=== PATIENT | male | born 1980 | race Caucasian/White ===

== ENCOUNTER 2018-01-10 18:59 | Emergency (ER) | payer BC, OTHER ==
[2018-01-10] MEDS ORDERED: NORMAL SALINE 1000 ML 500 ML IV ONE (20:03)
[2018-01-10] MEDS ORDERED: FENTANYL CITRATE INJ/PF 100 MCG/2 ML AMPUL IV ONE (20:04)
[2018-01-10] MEDS ORDERED: ONDANSETRON HCL INJ/PF 4 MG/2 ML SDV IV ONE (20:04)
--- NOTE | 2018-01-10 20:05 | ER Document Report ---
ED Medical Screen (RME) - General Chief Complaint: Flank Pain Stated Complaint: FLANK PAIN Time Seen by Provider: 01/10/18 20:00 Notes: RME DISCLOSURE I have seen this patient as part of a Rapid Medical Evaluation and, if applicable, placed any initially appropriate orders. The patient will be seen and fully evaluated, including a full history and physical exam, by a provider ( in Main ED or Fast Track) when a room becomes available. 38-year-old male here with complaints of right low back pain that started a few days ago. Pain is worse with movement and improved with minimizing movement however he still has some pain even at rest. This morning, he started to get nauseous and this made him worry that the pain may be more than just musculoskeletal. He does not have any hematuria dysuria frequency abdominal pain fevers chills diarrhea. He has no prior history of kidney stone. EXAM I am unable to reproduce the pain upon palpation of the lower lumbar paraspinal musculature No abdominal tenderness TRAVEL OUTSIDE OF THE [place] IN LAST 30 DAYS: No - Related Data Allergies/Adverse Reactions: No Known Allergies Allergy (Unverified 01/10/18 19:01) Past Medical History - Social History Chew tobacco use (# tins/day): No Frequency of alcohol use: Occasional Drug Abuse: None Renal/ Medical History: Denies: Hx Peritoneal Dialysis GI Medical History: Reports: Hx Gastroesophageal Reflux Disease Past Surgical History: Reports: Hx Tonsillectomy Physical Exam - Vital signs Vitals: Temp Pulse Resp BP Pulse Ox 98.5 F 73 20 140/78 H 96 01/10/18 19:40 01/10/18 19:40 01/10/18 19:40 01/10/18 19:40 01/10/18 19:40 Course - Vital Signs Vital signs: Temp Pulse Resp BP Pulse Ox 98.5 F 73 20 140/78 H 96 01/10/18 19:40 01/10/18 19:40 01/10/18 19:40 01/10/18 19:40 01/10/18 19:40
[2018-01-10 20:40] LABS: ABSOLUTE EOSINOPHILS # (AUTO) 0.3 10^3/uL (0.0-0.6); ABSOLUTE LYMPHOCYTES (AUTO) 3.2 10^3/uL (0.5-4.7); ABSOLUTE MONOCYTES (AUTO) 0.6 10^3/uL (0.1-1.4); ABSOLUTE NEUT (AUTO) 4.8 10^3/uL (1.7-8.2); BASOPHILS % (AUTO) 0.5 % (0-2); EOSINOPHILS % (AUTO) 3.8 % (0-6); HEMATOCRIT 41.5 % (37.9-51.0); HEMOGLOBIN 13.9 g/dL (13.5-17.0); LYMPHOCYTES % (AUTO) 35.6 % (13-45); MEAN CORPUSCULAR HGB CONC 33.4 g/dL (32.0-36.0); MEAN CORPUSCULAR VOLUME 87 fl (80-97); MONOCYTES % (AUTO) 7.2 % (3-13); PLATELET COUNT 317 10^3/uL (150-450); RED BLOOD COUNT 4.79 10^6/uL (4.35-5.55); RED CELL DISTRIBUTION WIDTH 14.1 % (11.5-14.0); SEGMENTED NEUTROPHILS % (AUTO) 52.9 % (42-78); TOTAL CELLS COUNTED % (AUTO) 100 %; WHITE BLOOD COUNT 9.1 10^3/uL (4.0-10.5)
[2018-01-10 21:00] LABS: ANION GAP 14 (5-19); BLOOD UREA NITROGEN 11 mg/dL (7-20); CALCIUM 10.1 mg/dL (8.4-10.2); CARBON DIOXIDE 28 mmol/L (22-30); CHLORIDE 101 mmol/L (98-107); GLUCOSE 106 mg/dL (75-110); POTASSIUM 4.1 mmol/L (3.6-5.0); SODIUM 143.2 mmol/L (137-145)
--- NOTE | 2018-01-10 21:11 | RADIOLOGY REPORT (SQ) ---
EXAM DESCRIPTION: CT LTD RENAL STONE PROTOCOL ON COMPLETED DATE/TIME: 01/10/2018 8:47 pm REASON FOR STUDY: R flank pain; eval stone COMPARISON: None. TECHNIQUE: CT scan of the abdomen and pelvis performed without intravenous or oral contrast. Images reviewed with lung, soft tissue, and bone windows. Reconstructed coronal and sagittal MPR images revi ewed. All images stored on PACS. All CT scanners at this facility use dose modulation, iterative reconstruction, and/or weight based d osing when appropriate to reduce radiation dose to as low as reasonably achievable (ALARA). [facility]: Dose Right [facility]: CareDose [facility]: Dose Right [facility]: Teradose 4D [facility]: Smart [employer] RADIATION DOSE: CT Rad equipment meets quality standard of care and radiation dose reduction techniq ues were employed. CTDIvol: 13.9 mGy. DLP: 749 mGy-cm.mGy. LIMITATIONS: None. FINDINGS: LOWER CHEST: No significant findings. No nodules or infiltrates. NON-CONTRASTED LIVER, SPLEEN, ADRENALS: Evaluation limited by lack of IV contrast. No identified sign ificant masses. PANCREAS: No masses. No peripancreatic inflammatory changes. GALLBLADDER: No identified stones by CT criteria. No inflammatory changes to suggest cholecystitis. RIGHT KIDNEY AND URETER: No suspicious masses. Assessment limited by lack of IV contrast. No signif icant calcifications. No hydronephrosis or hydroureter. LEFT KIDNEY AND URETER: No suspicious masses. Assessment limited by lack of IV contrast. No signifi cant calcifications. No hydronephrosis or hydroureter. AORTA AND RETROPERITONEUM: No aneurysm. No retroperitoneal masses or adenopathy. BOWEL AND PERITONEAL CAVITY: No obvious masses or inflammatory changes. No free fluid. APPENDIX: Not identified. No pericecal inflammatory changes are seen. PELVIS, BLADDER, AND ABDOMINAL WALL:No abnormal masses. No free fluid. Bladder normal. BONES: No significant findings. OTHER: No other significant finding. IMPRESSION: NO SIGNIFICANT OR ACUTE PROCESS IN THE ABDOMEN OR PELVIS. COMMENT: Quality ID # [id number]: Final reports with documentation of one or more dose reduction techniques (e.g., Automated exposure control, adjustment of the mA and/or kV according to patient size, use of iterative reconstruction technique) TECHNICAL DOCUMENTATION: JOB ID: [id number] [employer]- All Rights Reserved Reading location - IP/workstation name: [email or web address]
--- NOTE | 2018-01-10 21:12 | ER Document Report ---
ED General - General Chief Complaint: Flank Pain Stated Complaint: FLANK PAIN Time Seen by Provider: 01/10/18 20:00 Mode of Arrival: Ambulatory Information source: Patient Notes: 38-year-old male presents with complaints of right flank pain. Patient denies any fevers or chills nausea vomiting or diarrhea. Patient does note that the pain has worsened with movement. He denies any history of kidney stones and kidney infections patient denies any urinary complaints TRAVEL OUTSIDE OF THE [place] IN LAST 30 DAYS: No - HPI Onset: Last week Onset/Duration: Sudden, Persistent Quality of pain: Achy Severity: Mild Pain Level: 1 Associated symptoms: Body/muscle aches Exacerbated by: Movement Relieved by: Denies Similar symptoms previously: No Recently seen / treated by doctor: No - Related Data Allergies/Adverse Reactions: No Known Allergies Allergy (Unverified 01/10/18 19:01) Past Medical History - Social History Smoking Status: Never Smoker Cigarette use (# per day): No Chew tobacco use (# tins/day): No Smoking Education Provided: No Frequency of alcohol use: Occasional Drug Abuse: None Family History: Reviewed & Not Pertinent Patient has suicidal ideation: No Patient has homicidal ideation: No Renal/ Medical History: Denies: Hx Peritoneal Dialysis GI Medical History: Reports: Hx Gastroesophageal Reflux Disease Past Surgical History: Reports: Hx Tonsillectomy Review of Systems - Review of Systems Notes: REVIEW OF SYSTEMS: CONSTITUTIONAL : Denies fever, chills, or sweats. Denies recent illness. EENT: Denies eye, ear, throat, or mouth pain or symptoms. Denies nasal or sinus congestion or discharge. Denies throat, tongue, or mouth swelling or difficulty swallowing. CARDIOVASCULAR: Denies chest pain. Denies palpitations or racing or irregular heart beat. Denies ankle edema. RESPIRATORY: Denies cough, cold, or chest congestion. Denies shortness of breath, difficulty breathing, or wheezing. GASTROINTESTINAL: Admits to right flank pain GENITOURINARY: Denies difficulty urinating, painful urination, burning, frequency, blood in urine, or discharge. MUSCULOSKELETAL: Denies back or neck pain or stiffness. Denies joint pain or swelling. SKIN: Denies rash, lesions or sores. HEMATOLOGIC : Denies easy bruising or bleeding. LYMPHATIC: Denies swollen, enlarged glands. NEUROLOGICAL: Denies confusion or altered mental status. Denies passing out or loss of consciousness. Denies dizziness or lightheadedness. Denies headache. Denies weakness or paralysis or loss of use of either side. Denies problems with gait or speech. Denies sensory loss, numbness, or tingling. Denies seizures. PSYCHIATRIC: Denies anxiety or stress. Denies depression, suicidal ideation, or homicidal ideation. ALL OTHER SYSTEMS REVIEWED AND NEGATIVE. Dictation was performed using [employer] voice recognition software PHYSICAL EXAMINATION: GENERAL: Well-appearing, well-nourished and in no acute distress. HEAD: Atraumatic, normocephalic. EYES: Pupils equal round and reactive to light, extraocular movements intact, sclera anicteric, conjunctiva are normal. ENT: Nares patent, oropharynx clear without exudates. Moist mucous membranes. NECK: Normal range of motion, supple without lymphadenopathy LUNGS: Breath sounds clear to auscultation bilaterally and equal. No wheezes rales or rhonchi. HEART: Regular rate and rhythm without murmurs ABDOMEN: Soft, nontender, nondistended abdomen. No guarding, no rebound. No masses appreciated right CVA tenderness. Musculoskeletal: Normal range of motion, no pitting or edema. No cyanosis. NEUROLOGICAL: Cranial nerves grossly intact. Normal speech, normal gait. Normal sensory, motor exams PSYCH: Normal mood, normal affect. SKIN: Warm, Dry, normal turgor, no rashes or lesions noted. Physical Exam - Vital signs Vitals: Temp Pulse Resp BP Pulse Ox 98.5 F 73 20 140/78 H 96 01/10/18 19:40 01/10/18 19:40 01/10/18 19:40 01/10/18 19:40 01/10/18 19:40 Course - Re-evaluation Re-evalutation: 01/10/18 21:12 Lab work including CBC CMP were performed no acute abnormality was noted to urinalysis pending CT is pending at this time 01/10/18 21:12 CT noted no significant abnormality, urinalysis still pending 01/10/18 23:50 Urinalysis also noted no acute abnormality, patient's presentation is quite benign, he is resting comfortably, he will be treated with anti-inflammatories for flank pain as there is no obvious intra-abdominal source of this patient's pain. He has been given very strict return precautions After performing a Medical Screening Examination, I estimate there is LOW risk for ACUTE APPENDICITIS, BOWEL OBSTRUCTION, ACUTE CHOLECYSTITIS, PERFORATED DIVERTICULITIS, INCARCERATED HERNIA, PANCREATITIS, TESTICULAR TORSION or PERFORATED ULCER, thus I consider the discharge disposition reasonable. Also, there is no evidence or peritonitis, sepsis, or toxicity. I have reevaluated this patient multiple times and no significant life threatening changes are noted. The patient and I have discussed the diagnosis and risks, and we agree with discharging home with close follow-up with the understanding that symptoms and presentations can change. We also discussed returning to the Emergency Department immediately if new or worsening symptoms occur. We have discussed the symptoms which are most concerning (e.g., bloody stool, fever, changing or worsening pain, intractable vomiting - standard verbal up date) that necessitate immediate return. - Vital Signs Vital signs: Temp Pulse Resp BP Pulse Ox 98.5 F 72 18 129/76 H 97 01/10/18 21:50 01/10/18 21:50 01/10/18 21:50 01/10/18 21:50 01/10/18 21:50 - Laboratory Result Diagrams: 01/10/18 20:25 01/10/18 20:25 Laboratory results interpreted by me: 01/10/18 20:25 RDW 14.1 H - Diagnostic Test Radiology reviewed: Image reviewed, Reports reviewed - no acute abnormality Discharge - Discharge Clinical Impression: Flank pain, Muscle strain Condition: Stable Disposition: HOME, SELF-CARE Instructions: Abdominal Pain ([facility]), Flank Pain ([facility]) Additional Instructions: Follow up with your physician tomorrow for further care or return to the ED IMMEDIATELY if symptoms worsen or new concerns occur. If you cannot afford to follow up with your primary care physician a list of low cost clinics have been provided at the end of your discharge papers as well. Prescriptions: Naproxen 500 mg PO BID #20 tablet
[2018-01-10 21:19] LABS: APPEARANCE,URINE CLEAR; BILIRUBIN,URINE NEGATIVE (NEGATIVE); COLOR,URINE COLORLESS; GLUCOSE, URINE NEGATIVE (NEGATIVE); KETONES,URINE NEGATIVE (NEGATIVE); LEUKOCYTE ESTERASE,URINE NEGATIVE (NEGATIVE); NITRITE,URINE NEGATIVE (NEGATIVE); PROTEIN,URINE NEGATIVE (NEGATIVE); URINE SPECIFIC GRAVITY 1.001; UROBILINOGEN,URINE NEGATIVE mg/dL (<2.0)
[2018-01-10 21:51] VITALS: BP 129/76
== END 2018-01-10 21:51 | disposition home or self-care (01) ==
LOC: ER 18:59
DX: T14.8XXA Other injury of unspecified body region, initial encounter (principal); R10.9 Unspecified abdominal pain; X58.XXXA Exposure to other specified factors, initial encounter
CPT/HCPCS: 99284; 96361; 96374; 96375; 36415; 85025; 80048; 81001; 76380; J3010; J2405; J7030

== ENCOUNTER 2019-10-01 00:11 | Emergency (ER) | payer SELFPAY ==
--- NOTE | 2019-10-01 01:00 | RADIOLOGY REPORT (SQ) ---
EXAM DESCRIPTION: XR CHEST 2 VIEWS COMPLETED DATE/TME: 10/01/2019 00:00 CLINICAL HISTORY: 39 years, Male, chest pain COMPARISON: None. NUMBER OF VIEWS: 2 TECHNIQUE: 2 views of the chest LIMITATIONS: None. FINDINGS: The heart size is normal. Lungs are clear. No pneumothorax IMPRESSION: Negative chest copyright 2010 [employer]- All Rights Reserved
[2019-10-01] MEDS ORDERED: PREDNISONE 20 MG TABLET PO ONE (03:35)
[2019-10-01] MEDS ORDERED: ALBUTEROL SULFATE HFA (90 MCG/PUFF) 8 GM MDI (1 MDI/ER DISP) IH ONE (03:35)
--- NOTE | 2019-10-01 04:24 | ER Document Report ---
ED General - General Chief Complaint: Shortness Of Breath Stated Complaint: COUGH,DIZZY Time Seen by Provider: 10/01/19 03:21 Notes: 39-year-old male presents emergency department complaining that he has had a sinus infection since the and a cough since the . Patient states that he is short of breath, has a productive cough, has sweats and chills at night, states that he feels like he is wheezing and he can hear bubbles in his lungs when he breathes. Also states that he has pain in his chest when he coughs or takes a deep breath. Patient also states that he sometimes feels dizzy secondary to not being able to take a deep breath and he has not been sleeping well because he has been coughing all night long. Family members had similar symptoms but they have all gotten better. TRAVEL OUTSIDE OF THE [place] IN LAST 30 DAYS: No - Related Data Allergies/Adverse Reactions: No Known Allergies Allergy (Unverified 01/10/18 19:01) Past Medical History - General Information source: Patient - Social History Smoking Status: Former Smoker Frequency of alcohol use: Occasional Drug Abuse: None Family History: Reviewed & Not Pertinent Patient has suicidal ideation: No Patient has homicidal ideation: No Renal/ Medical History: Denies: Hx Peritoneal Dialysis GI Medical History: Reports: Hx Gastroesophageal Reflux Disease Past Surgical History: Reports: Hx Tonsillectomy Review of Systems - Review of Systems Constitutional: See HPI, Chills, Diaphoresis EENT: See HPI, Nose congestion, Nose discharge, Sinus discharge, Throat pain Cardiovascular: See HPI Respiratory: See HPI Gastrointestinal: No symptoms reported. denies: Diarrhea, Nausea, Vomiting -: Yes All other systems reviewed and negative Physical Exam - Vital signs Vitals: Temp Pulse Resp BP Pulse Ox 97.7 F 81 18 163/56 H 96 10/01/19 00:17 10/01/19 00:17 10/01/19 00:17 10/01/19 00:17 10/01/19 00:17 Interpretation: Hypertensive - Notes Notes: GENERAL: Alert, interacts well. No acute distress. HEAD: Normocephalic, atraumatic EYES: Pupils equal, round and reactive to light, extraocular movements intact. ENT: Oral mucosa moist, tongue midline. Clear rhinorrhea, no turbinate edema, tympanic membranes are intact, no injection, postnasal drip is noted. No sinus tenderness to percussion or palpation. NECK: Full range of motion, supple, trachea midline. Anterior cervical lymphadenopathy is noted. LUNGS: Clear to auscultation bilaterally, no wheezes, rales or rhonchi, no respiratory distress. He does have a dry cough. HEART: Regular rate and rhythm, no murmurs, gallops, rubs. ABDOMEN: Soft, nontender, nondistended, bowel sounds present in all 4 quadrants. EXTREMITIES: Moves all 4 extremities spontaneously, no edema, radial and dorsalis pedis pulses 2/4 bilaterally. No cyanosis. NEUROLOGICAL: Alert and oriented x3, normal speech. PSYCH: Normal mood, normal affect. SKIN: Warm, Dry, normal turgor, no rashes or lesions noted. Course - Re-evaluation Re-evalutation: 10/01/19 04:21 Chest x-ray shows no acute process, no evidence of pneumonia or pneumothorax. Patient does not have hypoxia, tachycardia or tachypnea on ambulation. Patient states he has been wheezing although I do not hear this. We will try an inhaler here and discharge him to home with the inhaler to see if it gives him symptomatic relief. No indication for antibiotics. I will give him steroids as well to help with symptomatic relief and discharged to home. - Vital Signs Vital signs: Temp Pulse Resp BP Pulse Ox 97.7 F 81 18 163/56 H 96 10/01/19 00:17 10/01/19 00:17 10/01/19 00:17 10/01/19 00:17 10/01/19 00:17 - EKG Interpretation by Me Additional EKG results interpreted by me: 10/01/19 04:23 EKG shows sinus rhythm at a rate of 79, normal axis, normal intervals, no ST segment elevations or depressions, no T wave inversions per my interpretation. Discharge - Discharge Clinical Impression: Viral upper respiratory tract infection with cough, Acute bronchitis, viral, Pleuritic chest pain Condition: Stable Disposition: HOME, SELF-CARE Additional Instructions: Bronchitis with Bronchospasm (Wheezing) You have bronchitis with bronchospasm (wheezing). Sometimes people develop wheezing with a chest cold. This occurs either because of an underlying tendency toward asthma or because the virus itself irritates the bronchial tubes. This irritation causes cough, shortness of breath, and wheezing. Emergency treatment of bronchospasm may include adrenaline shots or bronchodilator aerosol. You may feel lightheaded and have a rapid pulse for an hour or two. Rest and get plenty of fluids. At home, we'll treat you with a bronchodilator inhaler. Corticosteroids may be required for some patients. Until you recover, avoid chemical fumes, dusts, pollens, and exercising in very cold or dry air. If you smoke, stop now! Most cases of bronchitis get better without antibiotics. We prescribe antibiotics when we believe bacteria are damaging your airways, or if there's high risk the bronchitis will worsen into pneumonia. Increase your fluid intake. A cool mist humidifier may make your lungs more comfortable. An expectorant (cough medicine that loosens phlegm) can help. Repeated episodes of bronchitis and bronchospasm may result in lung damage -- for example, chronic bronchitis, recurrent pneumonias, or emphysema. If you develop a fever, increased wheezing, chest pain, or severe shortness of breath, you should contact the doctor immediately. Please use nasal saline rinses such as a NetiPot or NeilMed Sinus Rinses. Please use nasal steroid such as Nasonex 1 squirt per nostril twice a day to decrease inflammation and swelling. Please also use [id number] decongestants according to their directions on the box such as Sudafed during the day and Benadryl at night. Prescriptions: Prednisone [Deltasone 20 mg Tablet] 2 tab PO DAILY 5 Days tablet
[2019-10-01 05:06] VITALS: BP 142/65
--- NOTE | 2019-10-01 23:38 | EKG REPORT ---
SEVERITY:- BORDERLINE ECG - SINUS RHYTHM CONSIDER RIGHT VENTRICULAR HYPERTROPHY : Confirmed by: Dorothy Carcamo 01-Oct-2019 23:37:36
== END 2019-10-01 05:08 | disposition home or self-care (01) ==
LOC: ER 00:11
DX: J20.8 Acute bronchitis due to other specified organisms (principal); J06.9 Acute upper respiratory infection, unspecified; B97.89 Other viral agents as the cause of diseases classified elsewhere; R05 Cough; R07.81 Pleurodynia; R06.02 Shortness of breath; R61 Generalized hyperhidrosis; R68.83 Chills (without fever); R42 Dizziness and giddiness; R09.81 Nasal congestion; J34.89 Other specified disorders of nose and nasal sinuses; R09.82 Postnasal drip; R59.0 Localized enlarged lymph nodes; Z87.891 Personal history of nicotine dependence
CPT/HCPCS: 93005; 99283; 71046; 93010; J7512; J3490

== ENCOUNTER 2020-01-19 20:43 | Emergency (ER) | payer SELFPAY ==
[2020-01-19 20:49] VITALS: BP 160/65
[2020-01-19] MEDS ORDERED: DEXAMETHASONE 4 MG TABLET PO ONE (21:11)
[2020-01-19] MEDS ORDERED: AMOXICILLIN TR/POT CLAVULANATE 875-125 MG TAB PO ONE (21:11)
--- NOTE | 2020-01-19 21:17 | ER Document Report ---
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 He states this was preceded by sinus pressure, nasal drainage and postnasal drainage/congestion. He states he had a lot of pressure in the ears and then suddenly the pressure was relieved shortly after he noticed drainage from the bilateral ears. He admits to decreased hearing in both ears. States that he has irregular eustachian tubes given his history. He admits to fever about 48 hours ago but none since. Denies any nausea, vomiting, diarrhea, chills, night sweats, chest pain or shortness of breath. No cough. No recent travel or known sick contacts. TRAVEL OUTSIDE OF THE [place] IN LAST 30 DAYS: No - Related Data Allergies/Adverse Reactions: No Known Allergies Allergy (Verified 01/19/20 21:07) Past Medical History - Social History Smoking Status: Unknown if Ever Smoked Family History: Reviewed & Not Pertinent Renal/ Medical History: Denies: Hx Peritoneal Dialysis GI Medical History: Reports: Hx Gastroesophageal Reflux Disease Past Surgical History: Reports: Hx Tonsillectomy Review of Systems - Review of Systems Constitutional: Fever EENT: Ear pain, Nose congestion, Nose discharge, Sinus pressure, Sinus discharge -: Yes All other systems reviewed and negative Physical Exam - Vital signs Vitals: Temp Pulse Resp BP Pulse Ox 98.4 F 85 16 160/65 H 97 01/19/20 20:47 01/19/20 20:47 01/19/20 20:47 01/19/20 20:47 01/19/20 20:47 - General General appearance: Appears well, Alert In distress: None - HEENT Head: Normocephalic, Atraumatic Eyes: Normal Conjunctiva: Normal Extraocular movements intact: Yes Eyelashes: Normal Pupils: PERRL Ears: Other - Normal external ears External canal: Other - Edematous canals bilaterally, drainage/serosanguineous in the left ear canal Tympanic membrane: Perforation - Bilateral perforation Hearing loss: Left, Right Sinus: Normal Nasal: Normal Mouth/Lips: Normal Pharynx: Normal Neck: Normal - Respiratory Respiratory status: No respiratory distress Chest status: Nontender Breath sounds: Normal Chest palpation: Normal - Cardiovascular Rhythm: Regular Heart sounds: Normal auscultation Murmur: No - Neurological Neuro grossly intact: Yes Cognition: Normal Orientation: AAOx4 Butler Coma Scale Eye Opening: Spontaneous Sai Coma Scale Verbal: Oriented Butler Coma Scale Motor: Obeys Commands Sai Coma Scale Total: 15 Speech: Normal - Psychological Associated symptoms: Normal affect, Normal mood - Skin Skin Temperature: Warm Skin Moisture: Dry Skin Color: Normal Course - Re-evaluation Re-evalutation: 01/19/20 21:15 Patient with a history and physical consistent with a bilateral TM perforation. He will be placed on Augmentin given a single dose of Decadron here. Counseled him regarding the importance of outpatient follow-up and advised to return here or any ER immediately with any new, persistent or worsening symptoms. - Vital Signs Vital signs: Temp Pulse Resp BP Pulse Ox 98.4 F 85 16 160/65 H 97 01/19/20 20:47 01/19/20 20:47 01/19/20 20:47 01/19/20 20:47 01/19/20 20:47 Discharge - Discharge Clinical Impression: Eardrum rupture, bilateral Condition: Stable Disposition: HOME, SELF-CARE Instructions: Perforated Eardrum ([facility]) Additional Instructions: Follow-up with your regular doctor in 2 to 3 days for reevaluation. Return here or any ER immediately with any new, persistent or worsening symptoms. Prescriptions: Amoxicillin/Potassium Clav [Augmentin 875-125 Tablet] 1 tab PO Q12 #20 tablet
== END 2020-01-19 21:25 | disposition home or self-care (01) ==
LOC: ER 20:43
DX: H72.93 Unspecified perforation of tympanic membrane, bilateral (principal); H92.03 Otalgia, bilateral; H92.13 Otorrhea, bilateral; R51 Headache; R09.81 Nasal congestion; R09.89 Other specified symptoms and signs involving the circulatory and respiratory systems; H91.93 Unspecified hearing loss, bilateral
CPT/HCPCS: 99282; J8540; J3490